=== PATIENT | female | born 1990 | race African-American/Black ===

== ENCOUNTER → 2016-02-27 | Outpatient (CLI) | payer OTHER ==
[~2016-02-27] MED LIST: FIOR1CAP PO; REGL10TA6 PO; ZOFR4TAB3 PO
--- NOTE | 2016-02-27 21:27 | REP ---
Clinical: Anatomical evaluation. Comparison: 01/25/2016 . Findings: Examination demonstrates a single live intrauterine in breech presentation. motion is identified by technologist. Placenta is noted posterior and grade one without evidence for placenta previa or abruption. Amniotic fluid volume is normal. No evidence for nuchal cord. Gestational age by LMP 31 weeks 4 days with RORY 04/26/2016 . Gestational age by current measurements 30 weeks 2 days with RORY 05/05/2016 . FHR equals 175 beats per minute. Amniotic fluid index equals 12.1 cm Estimated weight 1542 grams ( 17th percentile). Anatomical assessment demonstrates normal structures including cranium, cavum, cerebellum/posterior fossa, facial features, lungs, ventricular outflow tracts, diaphragm, stomach, cord insertion/three-vessel cord, kidneys/bladder, spine. Suboptimal evaluation of the four-chamber heart and right ventricular outflow tract again noted. Impression: Advanced gestation in cephalic presentation demonstrating appropriate interval growth. Limited evaluation of the four-chamber heart and right ventricular outflow tract again noted. Remainder of the anatomical assessment is normal. Signed by José Miguel Moncada MD 02/27/2016 09:19 P
== END ==
LOC: M RAD 15:31
PROVIDERS: ATTEND Advanced Practice Midwife
DX: Z34.83 Encounter for supervision of other normal pregnancy, third trimester (principal)

== ENCOUNTER → 2016-03-04 | Outpatient (REF) | payer OTHER | LOC: M LAB REF 14:56 | PROVIDERS: ATTEND Advanced Practice Midwife | DX: Z34.83 Encounter for supervision of other normal pregnancy, third trimester (principal) ==

== ENCOUNTER → 2016-03-18 | Outpatient (CLI) | payer OTHER ==
--- NOTE | 2016-03-19 03:22 | REP ---
Clinical: Cervical length . Comparison: 02/27/2016 . Findings: Examination demonstrates a single live intrauterine in cephalic presentation. motion is identified by technologist. Placenta is noted posterior fundally and grade zero without evidence for placenta previa or abruption. Amniotic fluid volume is normal. Cervix measures 2.6 cm transvaginally with closed internal os. No evidence for nuchal cord. Gestational age by LMP 34 weeks 3 days with RORY 04/26/2016 . Gestational age by current measurements 33 weeks 1 day with RORY 05/05/2016 . FHR equals 149 beats per minute. Amniotic fluid index equals 15.1 cm (8.0 - 24.8). Estimated weight by current measurements, 2057 grams ( 19th percentile). Impression: Single live intrauterine in cephalic presentation. Cervix measures 2.6 cm in length with a closed internal os. Signed by José Miguel Moncada MD 03/19/2016 03:13 A
== END ==
LOC: M RAD 13:51
PROVIDERS: ATTEND Advanced Practice Midwife
DX: O47.03 False labor before 37 completed weeks of gestation, third trimester (principal)

== ENCOUNTER 2016-03-30 21:26 | Outpatient (CLI) | payer OTHER ==
--- NOTE | 2016-03-30 22:50 | IPNPDOC ---
Obstetrical Progress Note Date of Service The patient was seen on 03/30/16 at 22:00. Progress Note SUBJECTIVE: Patient is a 26-year-old who is 36 weeks 1 day gestation based on her LMP and consistent with her first trimester ultrasound. She initiated care in her first trimester with a woman's respective. has been complicated by severe low back pain and constipation. She presents to labor and delivery with complaints of 1 episode of a trickle of fluid from the vagina. Patient reports that only occurred 1 time but concerned her water was ruptured. Reports occasional contractions that are not painful. States she's been having vaginal pain and pressure for 1-2 weeks. Denies vaginal bleeding. Reports active movement. Allergies: No known drug allergies Current medications: None Past medical history: History of depression, seasonal allergies, and history of abnormal Pap smear. History of gonorrhea. Surgical: Tonsillectomy Social: Denies tobacco use. Denies alcohol or drug use. Patient is . No history of abuse. OBJECTIVE: heart rate baseline 155, moderate variability, positive accelerations, no decelerations. Contractions occasionally. GBS obtained. PHYSICAL EXAMINATION: Sterile speculum exam performed and revealed a moderate amount of thick off-white yellowish discharge. No pooling of fluid noted in the vaginal vault. Nitrazine negative. Fern negative. SVE: 1/75/-3, mid position, soft, no show. VITAL SIGNS: 125/81, 97.8, respirations 18, heart rate 120 with a repeat of 96. ASSESSMENT: IUP at 36 weeks 1 day gestation, category 1 heart rate tracing , GBS unknown, patient not ruptured and not in active labor. PLAN: Discharge to home with family. Reviewed access to care, kick counts , labor signs and symptoms, and danger signs need to be reported to provider. Patient has a follow-up appointment for routine OB care on April 05. Encouraged to follow up for her routine OB appointment. Dr. Carlson aware of plan of care. BRITTNEE HURD CNM Mar 30, 2016 22:50
== END 2016-03-30 23:35 | disposition home or self-care (01) ==
LOC: M LDO 21:26
PROVIDERS: ATTEND Obstetrics & Gynecology
DX: O26.893 Other specified pregnancy related conditions, third trimester (principal); O99.353 Diseases of the nervous system complicating pregnancy, third trimester; Z3A.36 36 weeks gestation of pregnancy; G89.4 Chronic pain syndrome; M54.5 Low back pain; O99.613 Diseases of the digestive system complicating pregnancy, third trimester; K59.00 Constipation, unspecified

== ENCOUNTER 2016-04-09 14:26 | Outpatient (CLI) | payer OTHER ==
[~2016-04-09] VITALS: Ht 154.9 cm; Wt 94.0 kg
[2016-04-09 14:39] VITALS: BP 138/76
[2016-04-09 15:51] VITALS: BP 115/58
[2016-04-09 16:30] VITALS: BP 119/67
[2016-04-09] MEDS ORDERED: LACTATED RINGER'S 1000 ML IV STA (16:48)
[2016-04-09 18:21] VITALS: BP 124/70
[2016-04-09 19:15] VITALS: BP 120/65
[2016-04-09 20:16] VITALS: BP 133/83
[2016-04-09] MEDS ORDERED: BICITRA 30ML SOLN UDC PO ONE (20:30)
== END 2016-04-09 20:30 | disposition home or self-care (01) ==
LOC: M LDO 14:26
PROVIDERS: ATTEND Obstetrics & Gynecology
DX: Z3A.37 37 weeks gestation of pregnancy (principal); Z79.899 Other long term (current) drug therapy

== ENCOUNTER 2016-04-19 20:54 | Outpatient (CLI) | payer OTHER ==
[2016-04-19] MEDS ORDERED: PRENTAB9 PO (21:24)
[2016-04-21] MEDS ORDERED: ACET500C PO (10:11)
[2016-04-21] MEDS ORDERED: IBUP-1114 PO (10:11)
== END 2016-04-19 21:32 | disposition home or self-care (01) ==
LOC: M RAD 20:54
PROVIDERS: ATTEND Specialist
DX: Z36 Encounter for antenatal screening of mother (principal); Z53.09 Procedure and treatment not carried out because of other contraindication

== ENCOUNTER → 2016-06-20 | Outpatient (REF) | payer OTHER ==
[~2016-06-20] MED LIST changes: +ACET500C PO; +IBUP-1114 PO; +PRENTAB9 PO
== END ==
LOC: M LAB REF 17:05
PROVIDERS: ATTEND Advanced Practice Midwife
DX: Z11.3 Encounter for screening for infections with a predominantly sexual mode of transmission (principal)

== ENCOUNTER → 2016-06-27 | Outpatient (CLI) | payer OTHER ==
[2016-06-27 18:29] LABS: THYROXINE (T4) 9.5 UG/DL (4.5-12.0)
== END ==
LOC: M SMT 14:41
PROVIDERS: ATTEND Advanced Practice Midwife
DX: Z13.89 Encounter for screening for other disorder (principal)

== ENCOUNTER 2016-07-22 21:21 | Emergency (ER) | payer OTHER ==
[~2016-07-22] VITALS: Ht 152.4 cm; Wt 86.2 kg
[2016-07-22] MEDS ORDERED: SERT1TAB16 PO (21:47)
[2016-07-23] MEDS ORDERED: NAPROXEN 250 MG TAB PO ONE
[2016-07-23] MEDS ORDERED: PERCOCET 5MG/325MG TAB PO ONE
--- NOTE | 2016-07-23 | REPUSA ---
Clinical statement: Pain, swelling. Findings: Venous Doppler imaging of the left upper extremity was performed. The internal jugular vein compresses normally and demonstrates normal color Doppler flow. Normal venous wave forms are seen wi thin the subclavian vein. The axillary, brachial, basilic, nd cephalic veins compress normally and de monstrate normal color Doppler flow. Normal augmentation is seen. Impression: No evidence of deep vein thrombosis in the left upper extremity.
[2016-07-23 00:04] VITALS: BP 118/78
[2016-07-23] MEDS ORDERED: NAPR500T PO (00:09)
[2016-07-23] MEDS ORDERED: GABA-283 PO (00:09)
== END 2016-07-23 00:15 | disposition home or self-care (01) ==
LOC: M ED 22:55
DX: M25.512 Pain in left shoulder (principal); F41.9 Anxiety disorder, unspecified; F33.9 Major depressive disorder, recurrent, unspecified; Z79.899 Other long term (current) drug therapy